=== PATIENT | female | born 1975 | race Caucasian/White ===

== ENCOUNTER 2021-09-05 06:57 | Inpatient (IN) ==
[2021-09-05 09:49] LABS: BUN/Creatinine Ratio 13 (6-26); Blood Urea Nitrogen 11 mg/dL (6-20); Calcium 9.1 mg/dL (8.6-10.3); Carbon Dioxide 25 mEq/L (23-29); Chloride 99 mEq/L (98-107); Glucose 116 mg/dL (70-105); Osmolality,Calculated 276 (280-300); Potassium 3.3 mEq/L (3.5-5.1); Sodium 133 mEq/L (136-145); Troponin I < 0.03 ng/mL (< 0.04); eGFR For African Americans > 60 (> 60); eGFR For Non-African Americans > 60 (> 60)
[2021-09-05 10:04] LABS: Basophils % 0.2 %; Eosinophils # 0.1 K/mcL (0.0-0.6); Eosinophils % 1.2 %; Immature Granulocytes % 0.5 % (0-4); Lymphocytes # 0.8 K/mcL (0.6-4.6); Lymphocytes % 11.6 %; Mean Corpuscular HGB Conc 26.4 g/dL (31.6-35.5); Mean Corpuscular Hemoglobin 18.9 pg (28.0-33.3); Mean Corpuscular Volume 71.6 fL (83.0-100.0); Mean Platelet Volume 10.8 fL (9.4-12.4); Monocytes # 0.5 K/mcL (0.0-1.3); Monocytes % 7.5 %; Neutrophils # 5.3 K/mcL (1.6-8.9); Platelet Count 256 K/mcL (140-400); Red Blood Count 1.69 M/mcL (3.82-4.97); White Blood Count 6.7 K/mcL (4.3-11.1)
[2021-09-05 10:06] LABS: Hematocrit 12.1 % (35.3-44.9); Hemoglobin 3.2 g/dL (11.5-15.4)
[2021-09-05 10:26] LABS: Anisocytosis 1+ (Not Present); Hypochromasia Present (Not Present); Platelet Estimate Normal (Normal)
[2021-09-05] MEDS ORDERED: Ondansetron 4 MG/2 ML VIAL IVP PRN (11:14)
[2021-09-05] MEDS ORDERED: Naloxone 0.4 MG/ML INJ IVP PRN (11:14)
[2021-09-05] MEDS ORDERED: Potassium Chloride Elixir 20 MEQ/15 ML UDC PO ONE (11:18)
[2021-09-05] MEDS ORDERED: 0.9 % Sodium Chloride 250 ML ONE ×2 (11:42→13:58)
[2021-09-05 12:22] LABS: Iron < 10 mcg/dL (50-170); Transferrin 415 mg/dL (203-362)
[2021-09-05] MEDS: Folic Acid 1 MG TABLET PO SCH (12:54)
[2021-09-05] MEDS: Thiamine (B-1) 100 MG TABLET PO SCH (12:54)
[2021-09-05 19:21] LABS: Basophils % 0.7 %; Eosinophils # 0.2 K/mcL (0.0-0.6); Hematocrit 22.4 % (35.3-44.9); Immature Granulocytes % 0.2 % (0-4); Lymphocytes # 1.3 K/mcL (0.6-4.6); Lymphocytes % 21.9 %; Mean Corpuscular HGB Conc 29.5 g/dL (31.6-35.5); Mean Corpuscular Hemoglobin 23.3 pg (28.0-33.3); Mean Platelet Volume 10.3 fL (9.4-12.4); Monocytes # 0.5 K/mcL (0.0-1.3); Monocytes % 7.9 %; Neutrophils # 3.8 K/mcL (1.6-8.9); Nucleated Red Blood Cells 0.3 /100 WBC (0); Platelet Count 234 K/mcL (140-400); Red Blood Count 2.83 M/mcL (3.82-4.97); Red Cell Distribution Width 20.4 % (11.5-14.5); Segmented Neutrophils % 65.3 %; White Blood Count 5.8 K/mcL (4.3-11.1)
[2021-09-05 19:28] LABS: Hemoglobin 6.6 g/dL (11.5-15.4)
[2021-09-05 19:29] LABS: Mean Corpuscular Volume 79.2 fL (83.0-100.0)
[2021-09-06 03:01] LABS: Hematocrit 20.7 % (35.3-44.9); Hematocrit 21.2 % (35.3-44.9); Hemoglobin 6.2 g/dL (11.5-15.4)
[2021-09-06 03:03] LABS: Hematocrit 20.8 % (35.3-44.9); Hemoglobin 6.2 g/dL (11.5-15.4); Mean Corpuscular HGB Conc 29.8 g/dL (31.6-35.5); Mean Corpuscular Hemoglobin 23.8 pg (28.0-33.3); Mean Corpuscular Volume 79.7 fL (83.0-100.0); Mean Platelet Volume 10.8 fL (9.4-12.4); Platelet Count 236 K/mcL (140-400); Red Blood Count 2.61 M/mcL (3.82-4.97); Red Cell Distribution Width 20.2 % (11.5-14.5); White Blood Count 5.7 K/mcL (4.3-11.1)
[2021-09-06 03:21] LABS: BUN/Creatinine Ratio 11 (6-26); Blood Urea Nitrogen 8 mg/dL (6-20); Calcium 8.7 mg/dL (8.6-10.3); Carbon Dioxide 22 mEq/L (23-29); Chloride 107 mEq/L (98-107); Glucose 100 mg/dL (70-105); Osmolality,Calculated 284 (280-300); Potassium 3.8 mEq/L (3.5-5.1); Sodium 138 mEq/L (136-145); eGFR For African Americans > 60 (> 60); eGFR For Non-African Americans > 60 (> 60)
[2021-09-06] MEDS: Thiamine (B-1) 100 MG TABLET PO SCH (07:51)
[2021-09-06] MEDS: Folic Acid 1 MG TABLET PO SCH (07:51)
[2021-09-06] MEDS ORDERED: 0.9 % Sodium Chloride 250 ML ONE (08:23)
[2021-09-06 16:11] LABS: Hematocrit 27.1 % (35.3-44.9); Hemoglobin 8.5 g/dL (11.5-15.4)
[2021-09-06] MEDS ORDERED: Gadolinium Contrast Agent (WT Based) IV PRN (18:22)
[2021-09-07] MEDS: Thiamine (B-1) 100 MG TABLET PO SCH (07:59)
[2021-09-07] MEDS: Folic Acid 1 MG TABLET PO SCH (07:59)
[2021-09-07 09:18] LABS: Basophils # 0.1 K/mcL (0.0-0.2); Eosinophils # 0.3 K/mcL (0.0-0.6); Eosinophils % 6.1 %; Hematocrit 26.5 % (35.3-44.9); Immature Granulocytes % 0.4 % (0-4); Lymphocytes % 19.9 %; Mean Corpuscular HGB Conc 30.2 g/dL (31.6-35.5); Mean Corpuscular Hemoglobin 24.7 pg (28.0-33.3); Mean Corpuscular Volume 81.8 fL (83.0-100.0); Monocytes # 0.5 K/mcL (0.0-1.3); Monocytes % 10.5 %; Neutrophils # 3.2 K/mcL (1.6-8.9); Platelet Count 260 K/mcL (140-400); Red Blood Count 3.24 M/mcL (3.82-4.97); Red Cell Distribution Width 19.7 % (11.5-14.5); Segmented Neutrophils % 62.1 %; White Blood Count 5.1 K/mcL (4.3-11.1)
[2021-09-07 11:15] VITALS: BP 123/83; PULSE 102; TEMP 98.5; O2SAT 98
== END 2021-09-07 12:50 | disposition home or self-care (01) | DRG 811 ==
LOC: EMEROOARM 06:57 → 3NENU 18:51
PROVIDERS: ADMIT Internal Medicine; ATTEND Internal Medicine

== ENCOUNTER 2021-10-24 07:19 | Inpatient (IN) ==
[2021-10-24] MEDS ORDERED: cefOXitin 2,000 MG in 0.9 % Sodium Chloride 20 ML IVP ONE (07:36)
[2021-10-24] MEDS ORDERED: Ringers Solution, Lactated 1,000 ML IVC SCH ×2 (07:45→11:17)
[2021-10-24] MEDS ORDERED: *HR* Propofol 200 MG/20 ML VIAL IVP ONE (08:01)
[2021-10-24] MEDS ORDERED: Lidocaine -MPF 2% 5 ML VIAL ONE ×2 (08:01→09:55)
[2021-10-24] MEDS ORDERED: *HR* Rocuronium Bromide 50 MG/5 ML VIAL ONE (08:01)
[2021-10-24] MEDS ORDERED: *HR* FentaNYL (PF) 100 MCG/2 ML VIAL ONE (08:01)
[2021-10-24] MEDS ORDERED: Ondansetron 4 MG/2 ML VIAL ONE (08:01)
[2021-10-24] MEDS ORDERED: *HR* Midazolam HCl 2 MG/2 ML VIAL ONE (08:01)
[2021-10-24] MEDS ORDERED: *HR* OxyCODONE Immed Rel 5 MG TABLET PO PRN (08:07)
[2021-10-24] MEDS ORDERED: Ondansetron 4 MG/2 ML VIAL IVP PRN ×2 (08:07→12:09)
[2021-10-24] MEDS ORDERED: *HR* Magnesium Sulfate 1 GM/2 ML VIAL ONE (08:13)
[2021-10-24] MEDS ORDERED: Ketamine HCL *QUVA* 50mg (1mL) SYRINGE ONE (08:38)
[2021-10-24] MEDS ORDERED: Ketorolac 30 MG/ML VIAL ONE (09:24)
[2021-10-24] MEDS ORDERED: Acetaminophen IV 1,000 MG/100 ML BAG IVPB ONE (09:31)
[2021-10-24] MEDS ORDERED: *HR* HYDROMORPHONE 2 MG/ML VIAL ONE (09:32)
[2021-10-24] MEDS ORDERED: Sugammadex Sodium 200 MG/2 ML VIAL IV ONE (09:55)
[2021-10-24] MEDS ORDERED: cloNIDine HCL 0.1 MG TABLET PO ONE (10:23)
[2021-10-24] MEDS ORDERED: cloNIDine HCL 0.1 MG TABLET ONE (10:24)
[2021-10-24] MEDS: *HR* HYDROmorphone PF 0.5 MG/0.5 ML SYRINGE IVP PRN ×3 (10:34→10:54)
[2021-10-24] MEDS ORDERED: Sennosides 8.6 MG TABLET PO PRN (11:17)
[2021-10-24] MEDS ORDERED: Naloxone 0.4 MG/ML INJ IVP PRN (11:17)
[2021-10-24] MEDS: Ibuprofen 600 MG TABLET PO SCH ×2 (11:54→18:03)
[2021-10-24] MEDS: Acetaminophen 325 MG TABLET PO SCH ×2 (11:55→18:02)
[2021-10-24] MEDS: *HR* OxyCODONE Immed Rel 5 MG TABLET PO PRN (17:10)
[2021-10-25] MEDS: *HR* OxyCODONE Immed Rel 5 MG TABLET PO PRN ×2 (00:56→07:25)
[2021-10-25] MEDS: Acetaminophen 325 MG TABLET PO SCH (04:47)
[2021-10-25] MEDS: Ibuprofen 600 MG TABLET PO SCH (04:47)
[2021-10-25 07:16] VITALS: BP 146/97; PULSE 78; TEMP 98.5; O2SAT 99
[2021-10-25] MEDS ORDERED: Thiamine (B-1) 100 MG TABLET PO SCH (09:00)
[2021-10-25] MEDS ORDERED: Folic Acid 1 MG TABLET PO SCH (09:00)
== END 2021-10-25 09:42 | disposition home or self-care (01) | DRG 742 ==
LOC: SAMDAY 07:19 → 1NENUOBS 11:14
PROVIDERS: ADMIT Student in an Organized Health Care Education/Training Program; ATTEND Student in an Organized Health Care Education/Training Program